=== PATIENT | male | born 1945 | race Caucasian/White ===

== ENCOUNTER 2017-11-24 11:31 | Inpatient (IN) | payer OTHER ==
[~2017-11-24] VITALS: Ht 172.7 cm; Wt 81.8 kg
[~2017-11-24 11:31] MED LIST: ASPIRIN325 MG PO; ATACAND32 MG PO; CATAPRES0.2 MG PO; METFORMIN HCL1000 MG PO; NORVASC10 MG PO; PRILOSEC20 MG PO; TOPROL XL100 MG PO; TRADJENTA5 MG PO; ULTRAM50 MG PO; VENTOLIN HFA18 GM IH; ZOCOR20 MG PO
[2017-11-24 12:21] VITALS: BP 208/94
[2017-11-24 12:45] VITALS: BP 191/80
[2017-11-24 12:54] VITALS: BP 176/80
[2017-11-24 18:11] VITALS: BP 149/69
[2017-11-24 19:59] VITALS: BP 147/65
[2017-11-24 23:59] VITALS: BP 136/67
[2017-11-25 04:42] VITALS: BP 143/68
[2017-11-25] MEDS ORDERED: ASPIRIN325 MG PO (07:36)
[2017-11-25] MEDS ORDERED: HYDROCODON-ACE1 EAC7 PO (07:37)
[2017-11-25] MEDS ORDERED: CYCLOBENZAPRINE10 MG PO (07:37)
[2017-11-25] MEDS ORDERED: ULTRAM50 MG PO (07:37)
[2017-11-25 07:58] VITALS: BP 176/79
[2017-11-25 10:52] VITALS: BP 129/62
[2017-11-25 15:53] VITALS: BP 142/67
== END 2017-11-25 20:29 | disposition home or self-care (01) | DRG 520 ==
LOC: SDC 11:31 → ENRESERV 17:13 → 2SOUTH 17:51 → 3EAST 17:51
PROVIDERS: Neurological Surgery
DX: M48.062 Spinal stenosis, lumbar region with neurogenic claudication (principal); M51.16 Intervertebral disc disorders with radiculopathy, lumbar region; M21.371 Foot drop, right foot; J44.9 Chronic obstructive pulmonary disease, unspecified; I10 Essential (primary) hypertension; E11.9 Type 2 diabetes mellitus without complications; K21.9 Gastro-esophageal reflux disease without esophagitis; E78.00 Pure hypercholesterolemia, unspecified; F17.200 Nicotine dependence, unspecified, uncomplicated; Z79.82 Long term (current) use of aspirin
CPT/HCPCS: 72020; 76000; 82948; 94640; 94760; 94799; 99202; J0360; J0690; J1100; J1885; J2405; J2710; J3010; J3370; J3480; J7643